=== PATIENT | male | born 1965 | race Caucasian/White ===

== ENCOUNTER 2021-07-13 00:40 | Emergency (ER) | payer MEDICARE ==
[~2021-07-13] VITALS: Ht 185 cm; Wt 120.0 kg
[2021-07-13 00:45] VITALS: BP 164/104
--- NOTE | 2021-07-13 00:55 | ED General ---
General Stated Complaint: HYPERTENSION/HEADACHE History of Present Illness Date Seen by Provider: July 13, 2021 Time Seen by Provider: 00:55 Initial Comments 56-year-old male with PMH of hypertension and Lyme disease, is here with complaints of elevated blood pressure at home since last night with patient having sensation of pressure from his head all the way down to his legs. Patient states that he is very sensitive to blood pressure, and that the slightest increase or decrease makes him feel off. Patient states that even a very small amount of blood pressure medication can drop his blood pressure quickly, and certain other medications such as Xanax can elevate his blood pressure quickly. Patient denies actual chest pain, palpitation, shortness of breath, fever, recent illness, neurological deficits or unilateral weakness. Allergies and Home Medications Allergies Coded Allergies: No Known Drug Allergies (Unverified , 07/13/21) Patient Home Medication List Home Medication List Reviewed: Yes Review of Systems Review of Systems Constitutional: no symptoms reported EENTM: no symptoms reported Respiratory: no symptoms reported Cardiovascular: other (elevated BP) Gastrointestinal: no symptoms reported Genitourinary: no symptoms reported Musculoskeletal: no symptoms reported Skin: no symptoms reported Psychiatric/Neurological: No Symptoms Reported Hematologic/Lymphatic: No Symptoms Reported Immunological/Allergic: no symptoms reported Physical Exam Vital Signs Vital Signs - First Documented Capillary Refill : Height, Weight, BMI Height: '" Weight: lbs. oz. kg; BMI Method: General Appearance: Mild Distress HEENT: PERRL/EOMI, Moist Mucous Membranes Neck: Full Range of Motion Respiratory: Chest Non Tender, Lungs Clear, Normal Breath Sounds Cardiovascular: Regular Rate, Rhythm, No Edema Gastrointestinal: No Organomegaly, No Pulsatile Mass, Non Tender, Soft Back: Normal Inspection Extremity: Normal Range of Motion Neurologic/Psychiatric: Alert, Oriented x3, No Motor/Sensory Deficits Skin: Normal Color Progress/Results/Core Measures Suspected Sepsis SIRS Temperature: Pulse: Respiratory Rate: Laboratory Tests 07/13/21 01:09: White Blood Count 8.2 Blood Pressure / Mean: Laboratory Tests 07/13/21 01:09: Creatinine 1.20, INR Comment 1.0, Platelet Count 256, Total Bilirubin 1.1H Results/Orders Lab Results Laboratory Tests Test 07/13/21 01:09 07/13/21 01:42 Range/Units White Blood Count 8.2 4.3-11.0 10^3/uL Red Blood Count 5.04 4.30-5.52 10^6/uL Hemoglobin 14.8 13.3-17.7 g/dL Hematocrit 43 40-54 % Mean Corpuscular Volume 86 80-99 fL Mean Corpuscular Hemoglobin 29 25-34 pg Mean Corpuscular Hemoglobin Concent 34 32-36 g/dL Red Cell Distribution Width 12.4 10.0-14.5 % Platelet Count 256 130-400 10^3/uL Mean Platelet Volume 8.8 L 9.0-12.2 fL Immature Granulocyte % (Auto) 1 % Neutrophils (%) (Auto) 57 42-75 % Lymphocytes (%) (Auto) 35 12-44 % Monocytes (%) (Auto) 7 0-12 % Eosinophils (%) (Auto) 2 0-10 % Basophils (%) (Auto) 1 0-10 % Neutrophils # (Auto) 4.6 1.8-7.8 10^3/uL Lymphocytes # (Auto) 2.8 1.0-4.0 10^3/uL Monocytes # (Auto) 0.5 0.0-1.0 10^3/uL Eosinophils # (Auto) 0.1 0.0-0.3 10^3/uL Basophils # (Auto) 0.0 0.0-0.1 10^3/uL Immature Granulocyte # (Auto) 0.0 0.0-0.1 10^3/uL Prothrombin Time 13.1 12.2-14.7 SEC INR Comment 1.0 0.8-1.4 Activated Partial Thromboplast Time 33 24-35 SEC D-Dimer 0.26 0.00-0.49 UG/ML Sodium Level 140 135-145 MMOL/L Potassium Level 3.3 L 3.6-5.0 MMOL/L Chloride Level 103 98-107 MMOL/L Carbon Dioxide Level 26 21-32 MMOL/L Anion Gap 11 5-14 MMOL/L Blood Urea Nitrogen 18 7-18 MG/DL Creatinine 1.20 0.60-1.30 MG/DL Estimat Glomerular Filtration Rate 70 BUN/Creatinine Ratio 15 Glucose Level 131 H 70-105 MG/DL Calcium Level 9.3 8.5-10.1 MG/DL Corrected Calcium 9.1 8.5-10.1 MG/DL Magnesium Level 2.1 1.6-2.4 MG/DL Total Bilirubin 1.1 H 0.1-1.0 MG/DL Aspartate Amino Transf (AST/SGOT) 15 5-34 U/L Alanine Aminotransferase (ALT/SGPT) 18 0-55 U/L Alkaline Phosphatase 73 40-136 U/L Troponin I < 0.30 <0.30 NG/ML Pro-B-Type Natriuretic Peptide 30.6 <75.0 PG/ML Total Protein 7.5 6.4-8.2 GM/DL Albumin 4.3 3.2-4.5 GM/DL Urine Color YELLOW Urine Clarity CLEAR Urine pH 6.0 5-9 Urine Specific [place] >=1.030 1.016-1.022 Urine Protein NEGATIVE NEGATIVE Urine Glucose (UA) NEGATIVE NEGATIVE Urine Ketones NEGATIVE NEGATIVE Urine Nitrite NEGATIVE NEGATIVE Urine Bilirubin NEGATIVE NEGATIVE Urine Urobilinogen 0.2 < = 1.0 MG/DL Urine Leukocyte Esterase NEGATIVE NEGATIVE Urine RBC (Auto) 2+ H NEGATIVE Urine RBC 2-5 H /HPF Urine WBC RARE /HPF Urine Squamous Epithelial Cells RARE /HPF Urine Crystals NONE /LPF Urine Bacteria NEGATIVE /HPF Urine Casts PRESENT /LPF Urine Hyaline Casts RARE /LPF Urine Mucus MODERATE H /LPF Urine Culture Indicated NO My Orders Orders - LEO RODRIGUES MD Cbc With Automated Diff (07/13/21 01:06) Magnesium (07/13/21 01:06) Chest 1 View Ap/Pa Only (07/13/21 01:06) Ekg Tracing (07/13/21 01:06) Comprehensive Metabolic Panel (07/13/21 01:06) Protime With Inr (07/13/21 01:06) Partial Thromboplastin Time (07/13/21 01:06) Monitor-Rhythm Ecg Trace Only (07/13/21 01:06) Ed Iv/Invasive Line Start (07/13/21 01:06) Fibrin Degradation Products (07/13/21 01:06) Troponin I Fs (07/13/21 01:06) Probnp Fs (07/13/21 01:06) Ua Culture If Indicated (07/13/21 01:07) Ct Head Wo-R/O Stroke (07/13/21 01:08) Potassium Chloride (Tablet) (K Dur Table (07/13/21 02:12) Hydralazine Injection (Apresoline Inject (07/13/21 02:22) Vital Signs/I&O 07/13/21 07/13/21 07/13/21 07/13/21 00:45 00:45 01:00 01:15 Temp 36.2 36.2 Pulse 105 105 108 90 Resp 15 22 B/P (MAP) 164/104 164/104 (124) 161/97 165/89 Pulse Ox 98 97 98 O2 Delivery Room Air Room Air Room Air Room Air 07/13/21 07/13/21 07/13/21 07/13/21 01:45 02:00 02:15 02:30 Pulse 93 104 88 74 Resp 19 21 18 17 B/P (MAP) 164/105 170/97 169/99 162/104 Pulse Ox 98 98 97 96 O2 Delivery Room Air Room Air Room Air Room Air 07/13/21 07/13/21 07/13/21 07/13/21 02:46 03:00 03:15 03:30 Temp 36.5 Pulse 95 90 109 98 Resp 20 18 17 16 B/P (MAP) 161/106 170/99 171/102 151/86 Pulse Ox 97 98 97 97 O2 Delivery Room Air Room Air Room Air Room Air Capillary Refill : Progress Note : Progress Note 1. HYPERTENSIVE URGENCY: - CT HEAD: - CXR: - Pt took 3 baby ASA right before he came to the ER. - Labs unremarkable overall - Troponin normal - Hydralazine 5mg iv STAT - Pt's BP improved to 134/92 at time of discharge. Pt states he still feels ' funny', and feels stressed. I discussed the option of being admitted to the observation unit at [place], and discussed risks and benefits. But pt wants to gohome. I discussed with pt , that in that case, he needs to call his PCP first thing in the morning for an appointment. Pt agreed. -The patient was seen in the ED, and treated appropriately to presentation at a specific point in time. Patient is informed that there is a possibility that disease and illness can evolve and change in acuity rapidly or slowly after patient is discharged from the ER. Precautionary advice given to the patient for immediate return to ER if symptoms worsen or do not resolve, and to seek emergency care sooner rather than later. Pt also advised on the importance of PCP follow up and compliance with management and follow up plan with PCP and/or specialist, as this is part of the management plan. Pt verbally expressed understanding. 2. MILD HYPOKALEMIA: - s. K is 3.3 - Oral potassium 40mEq STAT ECG Initial ECG Impression Date: July 13, 2021 Initial ECG Impression Time: 00:50 Initial ECG Rate: 96 Initial ECG Rhythm: Normal Sinus (RBBB) Initial ECG Comparisson: No Previous ECG Available Departure Impression Primary Impression: Hypertensive urgency Additional Impression: Anxiety Disposition: 01 HOME, SELF-CARE Condition: Improved Departure-Patient Inst. Referrals: SARAH HENDERSON DO (PCP/Family) Primary Care Physician Patient Instructions: High Blood Pressure Emergencies, Tips to Help You [place] in Uncertain Times, Anxiety, Adult (DC) Add. Discharge Instructions: - Pt's BP improved to 134/92 at time of discharge. Pt states he still feels ' funny', and feels stressed. I discussed the option of being admitted to the observation unit at [place], and discussed risks and benefits. But pt wants to gohome. I discussed with pt , that in that case, he needs to call his PCP first thing in the morning for an appointment. Pt agreed. -The patient was seen in the ED, and treated appropriately to presentation at a specific point in time. Patient is informed that there is a possibility that disease and illness can evolve and change in acuity rapidly or slowly after patient is discharged from the ER. Precautionary advice given to the patient for immediate return to ER if symptoms worsen or do not resolve, and to seek emerge ncy care sooner rather than later. Pt also advised on the importance of PCP follow up and compliance with management and follow up plan with PCP and/or specialist, as this is part of the management plan. Pt verbally expressed understanding. LEO RODRIGUES MD July 13, 2021 00:55
[2021-07-13 01:19] LABS: BASOPHILS % (AUTO) 1 % (0-10); EOSINOPHILS # (AUTO) 0.1 10^3/uL (0.0-0.3); EOSINOPHILS % (AUTO) 2 % (0-10); HEMATOCRIT 43 % (40-54); HEMOGLOBIN 14.8 g/dL (13.3-17.7); LYMPHOCYTES # (AUTO) 2.8 10^3/uL (1.0-4.0); LYMPHOCYTES % (AUTO) 35 % (12-44); MEAN CORPUSCULAR HEMOGLOBIN 29 pg (25-34); MEAN CORPUSCULAR HGB CONC 34 g/dL (32-36); MEAN CORPUSCULAR VOLUME 86 fL (80-99); MEAN PLATELET VOLUME 8.8 fL (9.0-12.2); MONOCYTES # (AUTO) 0.5 10^3/uL (0.0-1.0); MONOCYTES % (AUTO) 7 % (0-12); NEUTROPHILS # (AUTO) 4.6 10^3/uL (1.8-7.8); NEUTROPHILS % (AUTO) 57 % (42-75); PLATELET COUNT 256 10^3/uL (130-400); WHITE BLOOD COUNT 8.2 10^3/uL (4.3-11.0)
[2021-07-13 01:32] LABS: PROTHROMBIN TIME PATIENT 13.1 SEC (12.2-14.7)
[2021-07-13 01:52] LABS: BILIRUBIN,URINE NEGATIVE (NEGATIVE); CLARITY,URINE CLEAR; COLOR,URINE YELLOW; GLUCOSE, URINE (UA) NEGATIVE (NEGATIVE); KETONES,URINE NEGATIVE (NEGATIVE); LEUKOCYTE ESTERASE ,URINE NEGATIVE (NEGATIVE); NITRITE,URINE NEGATIVE (NEGATIVE); PROTEIN,URINE NEGATIVE (NEGATIVE)
[2021-07-13 01:55] LABS: BILIRUBIN,TOTAL 1.1 MG/DL (0.1-1.0); CALCIUM 9.3 MG/DL (8.5-10.1); CREATININE SERUM 1.2 MG/DL (0.60-1.30); MAGNESIUM 2.1 MG/DL (1.6-2.4); POTASSIUM 3.3 MMOL/L (3.6-5.0); TOTAL PROTEIN 7.5 GM/DL (6.4-8.2)
[2021-07-13 01:56] LABS: ALBUMIN 4.3 GM/DL (3.2-4.5)
[2021-07-13 02:02] LABS: BACTERIA,URINE NEGATIVE /HPF; SQUAMOUS EPITHELIAL CELL,UR RARE /HPF; WBC,URINE RARE /HPF
[2021-07-13 02:03] LABS: HYALINE CASTS, URINE RARE /LPF
[2021-07-13] MEDS ORDERED: KCL 20 MEQ TAB (K-DUR) PO STA (02:12)
[2021-07-13] MEDS ORDERED: hydrALAZINE (APESOLINE) 20 MG/ML VIAL IV STA (02:22)
--- NOTE | 2021-07-13 06:41 | Diagnostic Imaging Report ---
EXAMINATION: CT head without contrast. TECHNIQUE: Multiple contiguous axial images were obtained through the brain without the use of intravenous contrast. All CT scans use one or more of the following dose optimizing techniques: automated exposure control, MA and/or KvP adjustment based on patient size and exam type or iterative reconstruction. HISTORY: Hypertension. Headache and dizziness. COMPARISON: None available. FINDINGS: No large acute territorial ischemia, mass, or hemorrhage. No midline shift or mass effect. The ventricles, cortical sulci, and basilar cisterns are patent and unremarkable. The orbits are normal. Paranasal sinuses are normal. Mastoid air cells are clear. No soft tissue abnormality is seen. No osseus lesions or fractures are seen. IMPRESSION: 1. No large acute territorial ischemia, mass, or hemorrhage. Dictated by: Dictated on workstation # [id number]
--- NOTE | 2021-07-13 06:45 | Diagnostic Imaging Report ---
EXAMINATION: Chest 1 view HISTORY: Hypertension. COMPARISON: None available. FINDINGS: The lung volumes are normal. No focal consolidation is seen. Anastomotic suture is visualized in the left upper lobe and mid left lung. No large pleural effusion or pneumothorax is seen. The cardiomediastinal silhouette is normal in size and contour. No acute osseous abnormality is seen. IMPRESSION: 1. No acute pleuroparenchymal process. Dictated by: Dictated on workstation # [id number]
== END 2021-07-13 04:01 | disposition home or self-care (01) ==
LOC: EDUNIT# 00:40 → ER FS 00:47
DX: I16.0 Hypertensive urgency (principal); I10 Essential (primary) hypertension; F41.9 Anxiety disorder, unspecified
CPT/HCPCS: 36415; 70450; 71045; 80053; 81000; 83735; 83880; 84484; 85025; 85379; 85610; 85730; 93005; 93041